=== PATIENT | female | born 1950 | race Hispanic/Latino ===

== ENCOUNTER → 2025-05-14 | Outpatient (CLI) | payer OTHER ==
[~2025-05-14] MED LIST: REGADENOSON 0.4 MG/5 ML PF SYG IVP ONE
--- NOTE | 2025-05-14 16:33 | HMCSR ---
APPROVED REPORT TEST INDICATIONS Dyspnea , Fatigue The imaging protocol used to acquire images was Rest Tc-99m/stress Tc-99m 1 day Consent: The procedure was explained and understood by the patient. Informerd consent was witnessed MEAGHAN Carr First, low dose rest was performed then high dose stress. RESTING DATA: The resting ekg shows: NSR Rest SPECT myocardial perfusion imaging was performed in supine position minutes following the intra venous injection of 11 mCi of Tc-99 Sestamibi. Time of rest injection: 1010 Date: 05/14/2025 PHARMACOLOGIC STRESS: Pharmacologic stress test was performed by injecting regadenoson 0.4 mg IV push followed by the intra venous injection of 30 mCi of Tc-99 Sestamibi. Time of stress injection: 1155 Date: 05/14/2025 Heart Rate at time of stress injection: 54 bpm. The images were gated to evaluate regional wall motion and calculate left ventricular ejection fracti on. STRESS DETAILS Reason for Termination: Infusion complete Stress Symptoms: Dyspnea Max HR Achieved: 88 bpm % of APMHR Achieved: 70 Max Blood Pressure: 136/65 mmHg Stress ECG: NSR LEFT VENTRICLE The left ventricular ejection fraction was calculated to be >65%.TID = 0.94. LV PERFUSION Stress Perfusion Normal IMPRESSION Normal pharmacologic nuclear stress test. Conclusion Normal [id number] stress test with an LVEF >65% and a TID of 0.94. No reversible ischemia.
== END | disposition home or self-care (01) ==
LOC: RAH 09:10
PROVIDERS: ATTEND Internal Medicine
DX: R06.02 Shortness of breath (principal); R53.83 Other fatigue; R06.00 Dyspnea, unspecified
CPT/HCPCS: 78452; 93017; J2785; A9500 ×2